=== PATIENT | male | born 1950 | race Caucasian/White ===

== ENCOUNTER 2017-08-16 15:13 | Emergency (ER) | payer OTHER ==
[~2017-08-16] VITALS: Ht 175.3 cm; Wt 113.0 kg
[~2017-08-16 15:13] MED LIST: ASPIRIN325 MG PO; ATORVASTATIN CA40 MG PO; AUGMENTIN875 MG PO; CIPROFLOXACIN500 M1 PO; DIOVAN HCT 11 TABLET PO; DIOVAN80 MG PO; ECOTRIN325 MG PO; GLUCOPHAGE500 MG PO; LANTUS 3 M100 UNITS1 SC; LEVEMIR FL100 UNIT/1 SC; LIPITOR40 MG PO; LOPRESSOR100 M1 PO; Lopressor PO; Lovenox SC; METFORMIN HCL1000 MG PO; METFORMIN HCL500 MG PO; METFORMIN HCL850 MG PO; NORVASC10 MG PO; NOVOLIN N100 UNITS/ SC; Plavix PO; Pravachol PO; SEPTRA DS TABL1 EACH PO; TRAMADOL HCL50 MG PO; VALSARTAN-HCTZ1 EAC1 PO; VALSARTAN160 MG PO; XARELTO15 MG PO; XARELTO20 MG PO; Zestril,Prinivil PO
[2017-08-16 16:43] LABS: CHLORIDE 102 mEq/L (99-109); POTASSIUM 4.5 mEq/L (3.7-5.4); SODIUM 138 mEq/L (136-147)
[2017-08-16 16:45] LABS: GLUCOSE 268 mg/dL (70-99)
[2017-08-16 16:49] LABS: CREATININE 1.1 mg/dL (0.6-1.3); GFR ESTIMATE (CALCULATED) > 59 mL/min/ (58.99-99999)
[2017-08-16 16:50] LABS: UREA NITROGEN (BUN) 19 mg/dL (9-23)
[2017-08-16 17:40] LABS: C-REACTIVE PROTEIN 53.6 MG/L (0-10)
[2017-08-16] MEDS ORDERED: NORCO 5/3251 TABLET PO (19:58)
[2017-08-16 20:23] VITALS: BP 128/78
[2017-08-17] MEDS ORDERED: ASPIRIN325 MG PO (19:36)
== END 2017-08-16 20:15 | disposition home or self-care (01) ==
LOC: EME 15:13
PROVIDERS: Physician Assistant
DX: E11.69 Type 2 diabetes mellitus with other specified complication (principal); E11.621 Type 2 diabetes mellitus with foot ulcer; M86.9 Osteomyelitis, unspecified; L97.529 Non-pressure chronic ulcer of other part of left foot with unspecified severity; I10 Essential (primary) hypertension; I48.91 Unspecified atrial fibrillation; I25.2 Old myocardial infarction; Z79.4 Long term (current) use of insulin
CPT/HCPCS: 73630; 80048; 86140; 99281; 99285; J0692

== ENCOUNTER → 2017-09-05 | Outpatient (CLI) | payer OTHER ==
[~2017-09-05] MED LIST changes: +NORCO 5/3251 TABLET PO
== END | disposition home or self-care (01) ==
LOC: PICC 09:54
DX: M86.9 Osteomyelitis, unspecified (principal)
CPT/HCPCS: 76937